=== PATIENT | female | born 1970 | race Caucasian/White ===

== ENCOUNTER → 2024-10-01 | Day surgery (SDC) | payer MEDICAID ==
[~2024-10-01] VITALS: Ht 157.5 cm; Wt 79.4 kg
[~2024-10-01] MED LIST: BUPIVACAINE HCL PF 0.5 % 50 MG/10 ML SDV ONE; BUPIVACAINE HCL PF 0.5% 30 ML VIAL ONE; FERROUS SULFAT325 MG PO; LIDOCAINE HCL 1% (10MG/ML) 100 MG/10 ML MDV ONE; OS-CAL 500500 M1 PO; PROTONIX40 M2 PO; SEROQUEL XR150 MG PO; SODIUM CHLORIDE 0.9% 10 ML SYR ONE; SYMBICORT 80-4.5MCG; TRIAMCINOLONE ACETONIDE 40 MG/ML ML ONE; VITAMIN C + PO
[2024-10-01 08:59] VITALS: BP 136/82
== END ==
LOC: ORM 06:58
PROVIDERS: ATTEND Student in an Organized Health Care Education/Training Program
DX: M54.9 Dorsalgia, unspecified (principal); M54.89 Other dorsalgia; M79.18 Myalgia, other site
CPT/HCPCS: J3301